=== PATIENT | female | born 1950 | race Caucasian/White ===

== ENCOUNTER → 2016-12-16 | Day surgery (SDC) | payer MEDICARE, OTHER ==
[~2016-12-16] VITALS: Ht 175.3 cm; Wt 93.0 kg
[~2016-12-16] MED LIST: CHOL100045 PO; CYAN250014 PO; ESCI20TA PO; ESOM20CA28 PO; ESTR1PAT13 TD; ESTR1TAB28 PO; GLUC750C PO; LISI10TA PO; MULT-1018 PO; OMEP20CA11 PO; PROG10PO3 PO; Sodium Chloride LOK Flush 10 mL Syringe IV PRN; fentaNYL-PF 50 mCg/mL 2 mL Inj IVPUSH PRN
[2016-12-16 13:52] VITALS: BP 150/93; PULSE 69; RESP 16; O2SAT 97
[2016-12-16] MEDS: 0.9% Sodium Chloride 1,000 ML IV SCH ×3 (13:59→14:40)
--- NOTE | 2016-12-16 14:49 | PCM.ENDCOL ---
Colonoscopy Date of Service: Dec 16, 2016 Physician Marc Edward MD Pre Procedure Diagnosis: Diarrhea Post Procedure Dx & Findings: Hemorrhoids diverticuli Procedure Colonoscopy PROCEDURE IN DETAIL: Prep adequate Withdrawal time 17 minutes After unremarkable rectal examination the Olympus video colonoscope was inserted patient's anal canal and was advanced to cecum. Landmarks were identified including the ileocecal valve and appendiceal orifice. Scope was withdrawn systematically. Visualized colonic mucosa showed healthy shiny mucosa with normal healthy-appearing vasculature. The further advanced into terminal ileum. We advanced about 5 cm. The villous structure noted without any ulcer or mass erosion. From the cecum and into the rectum, random biopsies were obtained for workup of diarrhea. In the sigmoid colon there are a few small diverticuli. In the rectum retroflexion was done which showed hemorrhoids. Anal canal was inspected carefully on the way out and hemorrhoids noted. Impression Normal TI Normal colon . Random biopsies obtained from cecum to the rectum. Diverticuli Hemorrhoids Recommendation Repeat colonoscopy as recommended by last colonoscopy. Diverticular diet Presedation Assessment Risks and Benefits Informed consent was obtained from the patient after all risks and benefits including but not limited to drug reaction, infection, pain, bleeding, perforation, as well as alternatives were discussed. Patient monitoring Continuous pulse oximetry, cardiac monitoring, blood pressure monitoring, IV access, and oxygen at 2L per nasal cannula. Periprocedural Fentanyl: Fentanyl 125mcg Incrementally Midazolam: Midazolam 6mg Incrementally Complications There were no periprocedural complications identified. Post Procedure Plan Post Procedure Recommendations 1. Restrict activities today. 2. Resume normal activities in the morning. 3. Resume medications. 4. Patient informed of normal post procedure side effects as bloating, drowsiness, blood streaking in the stool. 5. average risk CRCS. If colon polyps come back as: -Hyperplastic- can repeat colonoscopy in 10 years -Tubular adenoma- repeat colonoscopy in 5 years -Tubulovillous/villous adenoma- repeat colonoscopy in 3 years -If any dysplasia- return to clinic as soon as possible 6. Please don't hesitate to call me with any questions. Marc Edward MD Dec 16, 2016 14:49
[2016-12-16 14:53] VITALS: BP 107/67; PULSE 58; RESP 14; O2SAT 90
[2016-12-16 15:03] VITALS: BP 101/68; PULSE 58; RESP 16; O2SAT 94
[2016-12-16 15:12] VITALS: BP 106/68; PULSE 53; RESP 16; O2SAT 94
--- NOTE | 2016-12-18 11:25 | PATH ---
SURGICAL PATHOLOGY Attending Physician:Marc Edward M.D. CASE STATUS: Signed Out PATIENT NAME: JEY MARIA PID: [id number] : 1950 DATE COLLECTED:12/16/2016 00:00 SPECIMEN: Colon, Biopsy CLINICAL HISTORY: 1). RANDOM COLON BIOPSY FINAL DIAGNOSIS: 1.RANDOM COLON BIOPSY: LYMPHOCYTIC COLITIS. ICD10 CODE K52.89 GROSS DESCRIPTION: The specimen is received in one formalin filled container labeled with the patient's name, sublabeled "random colon" and consists of multiple portions of tissue which aggregate to 0.5 x 0.5 x 0.2 CM. The specimen is entirely submitted in one cassette. 12/17/2016 [facility] MICRO DESCRIPTION: Sections are of colonic mucosa, all of which are involved by an inflammatory process characterized by increased numbers of lymphocytes in the lamina propria and gland and surface epithelium. There is decreased surface cytoplasmic mucin. There are no granulomas, crypt abscesses, or volcano lesions. Crypt architecture is intact. ICD-9 CODES: CPT CODES: 1: 71284 Electronically Signed Out Keturah Parisi MD [facility] [address], [place] [address] Technical component performed at [facility], [address] [place] [address] Ave[address], [address]
== END | disposition home or self-care (01) ==
LOC: END 00:35
PROVIDERS: ATTEND Internal Medicine
DX: K52.832 Lymphocytic colitis (principal); K57.30 Diverticulosis of large intestine without perforation or abscess without bleeding; K64.9 Unspecified hemorrhoids
CPT/HCPCS: 45380; 88305; 99153; G0500; J2250; J3010; J7030